=== PATIENT | female | born 1955 | race African-American/Black ===

== ENCOUNTER → 2016-11-03 | Outpatient (CLI) | payer MEDICARE, OTHER ==
[~2016-11-03] MED LIST: ALBUTEROL17 GM INH; ALBUTEROL20 ml INH; AMOXICILLIN; AMOXICILLIN PO; CEFTIN PO; CERTAGEN PO; CLARITHROMYCIN; DESOXIMETASONE15 G2 TP; DIAZEPAM PO; DYAZIDE 37.5/251 CAP PO; FAMOTIDINE PO; FLEXERIL10 MG PO; HYDROCODONE-APA1 T51 PO; IBUPROFEN PO; LASIX PO; LIPITOR20 MG PO; NAPROXEN PO; NEURONTIN100 MG PO; NORCO 10/325 TA1 TAB PO; OXYCODONE HCL15 MG PO; PREDNISONE PO; STOOL SOFT & ST1 TAB PO; TRIAMTERENE-HC1 EACH PO; VICOPROFEN 200-1 TAB PO; ZYRTEC10 M2 PO; [UNRECOGNIZED DRUG - OTHER] PO
--- NOTE | ~2016-11-03 | CR150 ---
[facility] A Service of [facility] & [facility] RADIOLOGY TEXT RESULTS PATIENT: REANNA SAUCEDO LOCATION: [facility] : 57 UNIT #: [id number] AGE: [address]: ERNA SMITH APRN SEX: F ORDER DR: [id number] [facility] [address] [place], [place] [address] [id number] O MR#: [id number] Acc #: [id number] NAME: REANNA SAUCEDO : 1955 SEX: F STUDY DATE/TIME: 11/03/2016 12:28 UNIT: [facility] ROOM: STUDY DESCRIPTION: CR Hip Min 2 Views Lt Attending Physician: Erna Smith Aprn Referring Physician: Erna Smith Aprn Ordering Physician: Erna Smith Aprn Primary Care Physician: Erna Smith Aprn MEDICAL IMAGING REPORT This report is preliminary unless electronic signature is present EXAM AP pelvis with frog view left hip (2 images). Date: 11/03/2016 HISTORY Left hip pain for 6 months. No known injury. COMPARISON Left hip radiographs 06/16/2012 and lumbar spine radiographs 12/19/2013. FINDINGS There is [id number] bilateral hip joint space narrowing without significant osteophytosis. No evidence of avascular necrosis. No pelvic fracture hip fracture hip dislocation. No sacroiliac joint or pubic symphysis diastasis. Benign appearing bone island in the left sacral iliac, unchanged from 2012. Degenerative endplate spurring and endplate sclerosis in the imaged lower lumbar spine. IMPRESSION 1. No acute findings in the pelvis or left hip. 2. Mild to moderate but symmetric appearing bilateral hip joint space narrowing consistent with degenerative change. 3. Benign appearing bone island in the left sacral ala, unchanged. 4. Degenerative endplate changes lower lumbar spine. Dictated by... Michaela Arevalo M.D. THIS IS AN ELECTRONICALLY VERIFIED REPORT Michaela Arevalo M.D. at 11/04/2016 8:56 AM [facility] A Service of [facility] & [facility] RADIOLOGY TEXT RESULTS PATIENT: REANNA SAUCEDO LOCATION: [facility] : 57 UNIT #: [id number] AGE: [address]: ERNA SMITH APRN SEX: F ORDER DR: Susan TD: 11/03/2016 22:57 JOB #: [id number] MEDICAL IMAGING REPORT Page 1 of 1 COPY
== END | disposition home or self-care (01) ==
LOC: CRAD 12:01
DX: M25.552 Pain in left hip (principal); M47.896 Other spondylosis, lumbar region
CPT/HCPCS: 73501; 73502

== ENCOUNTER → 2016-11-10 | Outpatient (CLI) | payer MEDICARE, OTHER ==
--- NOTE | ~2016-11-10 | NM8 ---
[facility] A Service of [facility] & [facility] RADIOLOGY TEXT RESULTS PATIENT: REANNA SAUCEDO LOCATION: [facility] : 57 UNIT #: [id number] AGE: [address]: Maura Tapia SEX: F ORDER DR: [id number] [facility] [address] [place], [place] [address] [id number] O MR#: [id number] Acc #: [id number] NAME: REANNA SAUCEDO : 1955 SEX: F STUDY DATE/TIME: 11/10/2016 12:15 UNIT: [facility] ROOM: STUDY DESCRIPTION: CA Bone or Joint Whole Body Attending Physician: Del Tapia P.A.-C. Referring Physician: Del Tapia P.A.-C. Ordering Physician: Del Tapia P.A.-C. Primary Care Physician: Erna Squires Aprn MEDICAL IMAGING REPORT This report is preliminary unless electronic signature is present EXAM Whole-body bone scan COMPARISON 2 views of the left hip on November 03, [address] of the lumbar spine dated January 28, 2014. INDICATION 61-year-old female with progressively worsening low back pain since injury in 1982. There patient also reports left hip, left knee and bilateral foot pain for the last 6 months. Recent radiograph of the left hip demonstrated a sclerotic lesion in the left sacral ala. FINDINGS 32.5 mCi of technetium 99m labeled MDP was injected intravenously for the exam. Anterior and posterior whole body images were obtained in addition to right and left anterior and posterior oblique images of the ribs and right and left lateral views of the neck and calvaria. There is no focally increased uptake in the left sacral ala. The finding on recent radiograph of the left hip is therefore consistent with a benign bone island and is stable going back to outside CT of January 28, 2014. There is degenerative uptake seen in the medial and lateral compartments of both knees as well as at the right patellofemoral articulation. There is increased uptake at the level of the facet joints bilaterally in multiple levels of the lumbar spine. Approximately at the level of L2 there is a band-like area of increased uptake seen posteriorly which could reflect bilateral degenerative facet disease at this level. Alternatively, compression fracture could possibly give this appearance. IMPRESSION 1. There is no increased MDP uptake associated with the sclerotic lesion in the left sacral ala, which appears grossly stable going [facility] A Service of [facility] & [facility] RADIOLOGY TEXT RESULTS PATIENT: REANNA SAUCEDO LOCATION: [facility] : 57 UNIT #: [id number] AGE: [address]: Maura Tapia SEX: F ORDER DR: back to CT of January 2014, most consistent with a benign bone island. 2. There is increased uptake at the facets at multiple levels of the lumbar spine most consistent with degenerative facet disease. However at approximately the level L1-L2 there is a band-like area of increased uptake seen posteriorly which could reflect bilateral degenerative facet disease but a compression fracture cannot entirely be excluded. Correlation with the site of patient tenderness is recommended. Dedicated radiographs of the lumbar spine could be performed to exclude the possibility of a compression fracture in this location. 3. Tricompartmental degenerative changes of the right knee with bicompartmental degenerative change of the left knee. Dictated by... Eulogio Rosario M.D. THIS IS AN ELECTRONICALLY VERIFIED REPORT Eulogio Rosario M.D. at 11/13/2016 9:52 PM Timmy TD: 11/11/2016 08:32 JOB #: [id number] MEDICAL IMAGING REPORT Page 1 of 1 COPY
== END | disposition home or self-care (01) ==
LOC: CNUC 08:51
DX: R93.7 Abnormal findings on diagnostic imaging of other parts of musculoskeletal system (principal); M89.9 Disorder of bone, unspecified; M17.0 Bilateral primary osteoarthritis of knee
CPT/HCPCS: 78306; A9503